=== PATIENT | female | born 1950 | race Caucasian/White ===

== ENCOUNTER → 2024-05-18 06:19 | Day surgery (SDC) | payer MEDICARE, OTHER, SELFPAY | LOC: GI 06:19 | PROVIDERS: ATTENDING PHYSICIAN Internal Medicine Gastroenterology; FAMILY PHYSICIAN Family Medicine | DX: K62.89 Other specified diseases of anus and rectum (principal); K64.8 Other hemorrhoids; Z86.0101 Personal history of adenomatous and serrated colon polyps | CPT/HCPCS: 45378 ==

== ENCOUNTER → 2024-08-09 08:14 | Outpatient (REF) | payer MEDICARE, OTHER, SELFPAY | LOC: RST 08:14 | PROVIDERS: ATTENDING PHYSICIAN Nurse Practitioner Family; FAMILY PHYSICIAN Family Medicine | DX: R13.19 Other dysphagia (principal) | CPT/HCPCS: 74230; 92611 ==

== ENCOUNTER 2024-09-02 13:56 | Emergency (ER) | payer MEDICARE, OTHER, SELFPAY ==
--- NOTE | 2024-09-02 17:11 | ED.GENMED ---
History of Present Illness
General
Chief Complaint: Musculo-Skeletal Complaint
Source: patient
Exam Limitations: none
Time Seen by Provider: 09/02/24 17:10
Nursing documentation reviewed up to this point in time: agreed with
History of Present Illness
History of Present Illness:
74-year-old female with past medical history of hypertension, asthma, presents emergency department today with concerns of right lateral ankle swelling and pain following trip and fall. Patient also complains of pain in her great toe. Patient
reports that she was finishing up riding her horse and brushing her horse when her horse stepped on her foot by accident patient lost her balance and fell backwards. Patient reports that she felt like she twisted her ankle and notes pain. She is
able to get up on her own and walk and let her know what happened. Currently the pain has progressed and patient is unable to bear weight at all. Patient states that when she fell, she did not hit her head or lose consciousness. She
denies any neck pain. She follows with [facility]. Patient does note some numbness and tingling in her toes.
Past History
Past History
ED Past Medical History: Asthma, Hypothyroidism, Other (Hypothyroidism, asthma, bronchitis, irritable bowel syndrome ) and Other (Recent diagnosis of gallstones)
ED Past Surgical History:
Social History
Tobacco: Non-smoker
Alcohol: Occasional
Living: with family
Employment: Employed
Family History
Family History: Negative Diabetes or Hypertension
Review of Systems
Review of Systems
All Other Systems: ROS reviewed and negative except as documented in HPI and ROS
Phy Exam
Physical Exam
Physical Exam:
General: Patient is well appearing and in no acute distress; non-toxic
Skin: Warm and dry, no rashes or lesions
Head: Normocephalic, atraumatic
Eyes: Sclera non-icteric. EOMs intact.
Cardiac: Regular rate and rhythm, no murmurs
Peripheral Vascular: 2+ dorsalis pedis and posterior tibial pulses bilaterally
Pulm: Normal respiratory effort
Musculoskeletal: Tenderness palpation noted to the right lateral malleolus and over the first great toe with no tenderness over the dorsum of the foot, full ROM of the toes. No proximal tenderness to palpation over the right fibula.
Neuro: CN II-XII intact, no focal neurologic deficits. Sensation intact good 2 point discrimination.
Psychiatric: Appropriate mood and affect.
Course
Orders/Labs/Results
Orders:
Orders
09/02/24 13:58
CR Ankle - Right Min 3 Views * Urgent
Comment:
Reason For Exam: injury, pain
CR Foot - Right Min 3 Views Urgent
Comment:
Reason For Exam: injury, pain
09/02/24 19:31
Crutches-Treatment ONCE
09/02/24 19:33
Acetaminophen [Tylenol] 1,000 mg PO NOW STA
Vital Signs
Initial and Last Documented VS:
Initial Vital Signs
Temp Pulse Resp Pulse Ox
98.1 F 83 16 98
09/02/24 14:03 09/02/24 14:03 09/02/24 14:03 09/02/24 14:03
Last Documented Vital Signs
Temp Pulse Resp BP Pulse Ox
98.1 F 70 16 142/86 98
09/02/24 14:03 09/02/24 19:52 09/02/24 19:52 09/02/24 19:52 09/02/24 19:52
Procedures
Splinting/Sling Placement
right lower extremity:
Procedure completed by: Laurent mora
Pre-splint extermity exam: neurovascular intact
Splint material: fiberglass
Splint checked by provider?: Yes
Normal distal neurovascular exam?: Yes
MDM/Problems Addressed
Differential Diagnosis Includes:
Differentials include ankle sprain, lateral malleolus fracture, phalanx fracture
MDM/Problems Addressed:
74-year-old female presents emergency department today with concerns of ankle pain following trip and fall and first great toe pain on the right. Patient was found to have a nondisplaced fracture of the lateral malleolus along with lucency noted to
the lateral base of the first distal phalanx for small intra-articular fracture. Patient was placed in a posterior splint and a U-splint of the right lower extremity. Advised patient to not bear weight on the area. Patient requests crutches.
Patient use the crutches in the emergency department without difficulty. Patient lives with her at home who will help take care of her. Patient does follow with [facility]. Patient states that she will try to remove the ground
level floor at her house. Advised patient to colposcopy orthopedist for second Wednesday morning when she gets home. Patient stable for discharge.
*Pulse Oximetry
Patient hypoxic: no
*Critical Care Note
Total Time (30-74mins, 75-104mins- exclusive of procedures): Not Applicable
Data Reviewed
Review of Other/Old Records Reveals: Records (Reviewed discharge summary from 01/17/2013 patient seen for intermittent biliary colic and had cholecystic)
Source: patient and records
Patient Management
Escalation/DeEscalation of care consider admission/obs:
Admit not indicated, patient stable for discharge
Case reviewed with my attending
ED Attending Note
-
Portions of this chart may have been created with voice recognition software.� Occasional wrong word or��sound alike� substitutions may have occurred due to the inherent limitations of voice recognition software.
Discharge Plan
Departure
Patient Disposition: Home (Routine Discharge)
Date of Disposition: 09/02/24
Time of Disposition: 20:00
Patient with high blood pressure during this ER visit?: Yes
Condition: Good
Discharge Problem:
Fracture of lateral malleolus, Fracture of distal phalanx of great toe
Instructions: Ankle Fracture (DC), Splint Care, BLOOD PRESSURE
Prescriptions:
No Action
levothyroxine [Synthroid] 75 MCG tablet
75 mcg PO DAILY
hydrochlorothiazide 25 MG tablet
25 mg PO DAILY
Referrals:
Gene Soto DO [Family Provider] -
Activity Restrictions/Additional Instructions:
Please call the attached number to schedule an appointment for follow up with the orthopedist.
Please return emergency department should you develop chest pain, shortness of breath, fainting spells, loss of sensation in your right lower extremity, acute worsening of your pain, any other signs or symptoms worrisome to you.
Interventions
Interventions:
*Risk Screen - Suicide Last Done: 09/02/24 14:03
*General Assessment Last Done: 09/02/24 20:51
*Neglect/Abuse Screening Last Done: 09/02/24 14:03
ED- Fall Risk Assessment Last Done: 09/02/24 19:00
*ED COVID-19 Vaccine History Last Done: 09/02/24 20:51
*Nursing Disposition Last Done: 09/02/24 20:51
ED-Musculoskeletal Assessment Last Done: 09/02/24 19:00
Discharge Date and Time
Discharge Date/Time: 09/02/24 20:51
Print Language: TURKISH
[2024-09-02] MEDS: TYLENOL 1000 MG PO (19:37)
[2024-09-02 19:52] VITALS: BP 142/86
== END 2024-09-02 20:51 | disposition home or self-care (01) ==
LOC: EMR 13:56
PROVIDERS: EMERGENCY PHYSICIAN Student in an Organized Health Care Education/Training Program; FAMILY PHYSICIAN Family Medicine
DX: S82.64XA Nondisplaced fracture of lateral malleolus of right fibula, initial encounter for closed fracture (principal); S92.424A Nondisplaced fracture of distal phalanx of right great toe, initial encounter for closed fracture; W55.12XA Struck by horse, initial encounter; W18.39XA Other fall on same level, initial encounter; Y93.89 Activity, other specified; I10 Essential (primary) hypertension; K58.9 Irritable bowel syndrome, unspecified; E03.9 Hypothyroidism, unspecified; J45.909 Unspecified asthma, uncomplicated; Z87.891 Personal history of nicotine dependence; Z88.0 Allergy status to penicillin
CPT/HCPCS: 99283; 29515; 73610; 73630

== ENCOUNTER → 2024-09-21 10:09 | Outpatient (REF) | payer MEDICARE, OTHER, SELFPAY | LOC: HWRCS 10:09 | PROVIDERS: ATTENDING PHYSICIAN Nurse Practitioner; FAMILY PHYSICIAN Family Medicine | DX: I34.1 Nonrheumatic mitral (valve) prolapse (principal); I34.0 Nonrheumatic mitral (valve) insufficiency; I71.20 Thoracic aortic aneurysm, without rupture, unspecified | CPT/HCPCS: 71250; 93306 ==

== ENCOUNTER 2024-11-14 06:27 | Outpatient (RCR) | payer MEDICARE, OTHER, SELFPAY | END 2024-11-14 23:59 | disposition home or self-care (01) | LOC: RPT 06:27 | PROVIDERS: ATTENDING PHYSICIAN Student in an Organized Health Care Education/Training Program; FAMILY PHYSICIAN Family Medicine | DX: S82.61XD Displaced fracture of lateral malleolus of right fibula, subsequent encounter for closed fracture with routine healing (principal); S92.424D Nondisplaced fracture of distal phalanx of right great toe, subsequent encounter for fracture with routine healing; Z73.6 Limitation of activities due to disability; M62.81 Muscle weakness (generalized); R26.89 Other abnormalities of gait and mobility; W55.12XD Struck by horse, subsequent encounter; W18.39XD Other fall on same level, subsequent encounter | CPT/HCPCS: 97110; 97140; 97161; 97530 ==

== ENCOUNTER 2024-12-14 07:13 | Outpatient (RCR) | payer MEDICARE, OTHER, SELFPAY | END 2024-12-14 23:59 | disposition home or self-care (01) | LOC: RPT 07:13 | PROVIDERS: ATTENDING PHYSICIAN Student in an Organized Health Care Education/Training Program; FAMILY PHYSICIAN Family Medicine | DX: S82.61XD Displaced fracture of lateral malleolus of right fibula, subsequent encounter for closed fracture with routine healing (principal); S92.424D Nondisplaced fracture of distal phalanx of right great toe, subsequent encounter for fracture with routine healing; Z73.6 Limitation of activities due to disability; M62.81 Muscle weakness (generalized); R26.89 Other abnormalities of gait and mobility; W55.12XD Struck by horse, subsequent encounter; W18.39XD Other fall on same level, subsequent encounter | CPT/HCPCS: 97110; 97112; 97140; 97530 ==

== ENCOUNTER 2025-01-15 17:58 | Outpatient (RCR) | payer MEDICARE, OTHER, SELFPAY | END 2025-01-15 23:59 | disposition home or self-care (01) | LOC: RPT 17:58 | PROVIDERS: ATTENDING PHYSICIAN Student in an Organized Health Care Education/Training Program; FAMILY PHYSICIAN Family Medicine | DX: S82.61XD Displaced fracture of lateral malleolus of right fibula, subsequent encounter for closed fracture with routine healing (principal); S92.424D Nondisplaced fracture of distal phalanx of right great toe, subsequent encounter for fracture with routine healing; Z73.6 Limitation of activities due to disability; M62.81 Muscle weakness (generalized); R26.89 Other abnormalities of gait and mobility; W55.12XD Struck by horse, subsequent encounter; W18.39XD Other fall on same level, subsequent encounter | CPT/HCPCS: 97110; 97112; 97140 ==

== ENCOUNTER 2025-07-17 09:07 | Outpatient (RCR) | payer MEDICARE, OTHER, SELFPAY | END 2025-07-17 23:59 | disposition home or self-care (01) | LOC: RPT 09:07 | PROVIDERS: ATTENDING PHYSICIAN Family Medicine | DX: M79.604 Pain in right leg (principal); Z73.6 Limitation of activities due to disability; R26.2 Difficulty in walking, not elsewhere classified; R26.89 Other abnormalities of gait and mobility; M25.571 Pain in right ankle and joints of right foot; M62.81 Muscle weakness (generalized) | CPT/HCPCS: 97110; 97112; 97140; 97161; 97530 ==